=== PATIENT | female | born 1990 | race Caucasian/White ===

== ENCOUNTER 2023-07-19 11:29 | Outpatient (CLI) | payer OTHER, SELFPAY ==
[2023-07-19 14:04] LABS: Clue Cells No Clue Cells Seen (None Seen); Trichomonas No Trichomonas Seen (None Seen); Yeast No Yeast Seen (None Seen)
[2023-07-19 16:06] LABS: Chlamydia DNA Amplified* NOT DETECTED (No Detected); GC DNA Amplified* NOT DETECTED (No Detected)
== END 2023-07-19 11:30 | disposition home or self-care (01) ==
PROVIDERS: PCP Nurse Practitioner Family; Visit Provider Nurse Practitioner Family
DX: N89.8 Other specified noninflammatory disorders of vagina (principal)
CPT/HCPCS: 87086; 87186; 87210; 87491; 87591

== ENCOUNTER 2023-09-05 19:46 | Outpatient (CLI) | payer OTHER, SELFPAY | END 2023-09-05 19:47 | disposition home or self-care (01) | LOC: SLEEP 19:46 | PROVIDERS: PCP Nurse Practitioner Family; Visit Provider Otolaryngology | DX: G47.33 Obstructive sleep apnea (adult) (pediatric) (principal) | CPT/HCPCS: 95806 ==

== ENCOUNTER 2023-09-24 19:28 | Outpatient (CLI) | payer OTHER, SELFPAY ==
--- NOTE | 2023-10-02 12:40 | W.PM.SLEEP ---
Sleep Study Details Details Interpreting Provider: Jade Date of Sleep Study: 09/24/23 Sleep Study Details: STUDY TYPE:? Home unattended ? BMI:? 48.2 ORDERING PROVIDER:Loreta Hansen INDICATION:? Daytime hypersomnolence, concerns about sleep apnea ? SLEEP SUMMARY:? 483 minutes monitored RESPIRATORY SUMMARY:? AHI 3.7, supine 11.7, prone 0, left lateral 3 Low oxygen 89 Snoring none PERIODIC LIMB MOVEMENTS OF SLEEP:? Not recorded during home study CARDIAC:? Range 55-99, mean 65.1 beats per minute IMPRESSION:? This study overall the does not demonstrate clinically significant obstructive sleep apnea although the patient had mild apnea in the supine position. I am suspicious that the patient was awake during a portion of the study given her BMI I would have expected a positive study. Will discuss with her a follow-up visit. RECOMMENDATION: If sleep disorder strongly suspected would recommend an in-lab study with a sedative hypnotic agent. This is particularly true if she did not sleep well during the study.
== END 2023-09-24 19:29 | disposition home or self-care (01) ==
LOC: SLEEP 19:29
PROVIDERS: PCP Nurse Practitioner Family; Visit Provider Otolaryngology
DX: G47.33 Obstructive sleep apnea (adult) (pediatric) (principal)
CPT/HCPCS: 95806

== ENCOUNTER 2024-03-20 14:22 | Outpatient (CLI) | payer OTHER, SELFPAY | END 2024-03-20 14:23 | disposition home or self-care (01) | PROVIDERS: PCP Nurse Practitioner Family; Visit Provider Nurse Practitioner Family | DX: N93.8 Other specified abnormal uterine and vaginal bleeding (principal) | CPT/HCPCS: 83540; 83550; 85025 ==

== ENCOUNTER 2024-05-19 08:56 | Outpatient (CLI) | payer OTHER, SELFPAY | END 2024-05-19 08:57 | disposition home or self-care (01) | PROVIDERS: PCP Nurse Practitioner Family; Visit Provider Nurse Practitioner Family | DX: E03.9 Hypothyroidism, unspecified (principal); E66.01 Morbid (severe) obesity due to excess calories; Z86.2 Personal history of diseases of the blood and blood-forming organs and certain disorders involving the immune mechanism | CPT/HCPCS: 84439; 84443; 85025 ==

== ENCOUNTER 2024-08-28 09:04 | Outpatient (CLI) | payer OTHER, SELFPAY | END 2024-08-28 09:05 | disposition home or self-care (01) | PROVIDERS: PCP Nurse Practitioner Family; Visit Provider Nurse Practitioner Family | DX: E03.9 Hypothyroidism, unspecified (principal) | CPT/HCPCS: 84443 ==

== ENCOUNTER 2024-10-29 13:25 | Outpatient (CLI) | payer OTHER, SELFPAY | END 2024-10-29 13:26 | disposition home or self-care (01) | LOC: NFLDREF 11-07 04:17 | PROVIDERS: PCP Nurse Practitioner Family; Referring Provider Nurse Practitioner Family; Visit Provider Nurse Practitioner Family | DX: Z11.9 Encounter for screening for infectious and parasitic diseases, unspecified (principal) | CPT/HCPCS: 86480 ==

== ENCOUNTER 2025-06-26 11:01 | Outpatient (CLI) | payer OTHER, SELFPAY | END 2025-06-26 11:02 | disposition home or self-care (01) | PROVIDERS: PCP Nurse Practitioner Family; Visit Provider Nurse Practitioner Family | DX: Z13.0 Encounter for screening for diseases of the blood and blood-forming organs and certain disorders involving the immune mechanism (principal); Z13.6 Encounter for screening for cardiovascular disorders; E53.8 Deficiency of other specified B group vitamins; E55.9 Vitamin D deficiency, unspecified; E03.9 Hypothyroidism, unspecified | CPT/HCPCS: 80061; 82306; 82607; 82728; 84439; 84443; 85025 ==

== ENCOUNTER 2025-09-03 15:20 | Outpatient (CLI) | payer OTHER, SELFPAY | END 2025-09-03 15:21 | disposition home or self-care (01) | LOC: NFLDREF 09-12 15:25 | PROVIDERS: PCP Nurse Practitioner Family; Referring Provider Nurse Practitioner Family; Visit Provider Nurse Practitioner Family | DX: E03.9 Hypothyroidism, unspecified (principal) | CPT/HCPCS: 84443 ==